=== PATIENT | female | born 1940 | race Caucasian/White ===

== ENCOUNTER 2024-06-21 07:36 | Day surgery (SDC) | payer MEDICARE, OTHER, SELFPAY ==
[2024-06-21] VITALS (24 sets, daily range): BP systolic 81–151; BP diastolic 46–79; PULSE 52–98; RESP 12–18; TEMP 35.4–36.9; O2SAT 89–100; BMI 28.3
--- OUTSIDE RECORDS SUMMARY | 2024-06-21 07:40 | XMS_ITS | Clinical Summary ---
Author Organization [facility] Address [address] [place] [id number] Care Team Providers Care Development Editor Name Role Phone Monse Hopkins MD Primary Care Provider [phone] Allergies Active Allergy Reactions Criticality Noted Date Comments Sulfamethoxazole-Trimethoprim Nausea And Vomiting 11/18/2018 Medications ascorbic acid, vitamin C, (VITAMIN C) 500 mg tablet Take 1 tablet by mouth once daily. 0 3 Active calcium carbonate-david min D3, 600 mg-400 unit, 600 mg-10 mcg (400 unit) tablet Take 1 tablet by mouth 2 times daily with meals. 0 3 Active multivitamins- iron tablet Take 0.5 tablets by mouth once daily. 0 4 Active lysine 500 mg tab Take 1 tablet by mouth 2 times daily with meals. To prevent cold sores. 0 6 Active fluticasone (50 mcg per actuation) nasal solution (FLONASE)Indic ations:Recurre nt sinus infections Inhale 1 [place] into both nostrils once daily. 1 Bottle 3 8 Active aspirin chewable 81 mg chewable tablet Chew 81 mg by mouth once daily with a meal. Active carBAMazepine (CARBATROL) 100 mg Extended-Relea se capsuleIndicat ions:Trigemina l neuralgia Take 4 Capsules (400 mg) by mouth two times daily. 240 Capsule 11 4 Active Additional Information Patient taking differently: 200 mgOral BID, Reported on 06/07/2024 simvastatin (ZOCOR) 20 mg tabletIndicati ons:Hyperlipid emia with target LDL less than 100 TAKE 1 TABLET BY MOUTH AT BEDTIME 90 Tablet 1 4 Active atenoloL (TENORMIN) 50 mg tabletIndicati ons:Hypertensi on, isolated systolic Take 1 tablet by mouth once daily 90 Tablet 4 Active vit C-E-zinc oc-iply-anh-ze ax (ICaps AREDS2) 250 mg-200 unit -12.5 mg-1 mg cap Take 1 Capsule by mouth once daily. 4 Active cycloSPORINE (RESTASIS) 0.05 % ophthalmic emulsion Place 1 Drop into both eyes two times daily. 4 Active omeprazole (PRILOSEC) 40 mg Delayed-Releas e capsuleIndicat ions:Epigastri c pain TAKE 1 CAPSULE BY MOUTH ONCE DAILY BEFORE A MEAL 90 Capsule 5 Active baclofen (LIORESAL) 10 mg tabletIndicati ons:Trigeminal neuralgia Take 0.5-1 Tablets (5-10 mg) by mouth 3 times daily if needed (pain). 4 06/07/19 25 Discontin ued(*Breonna ent states no longer taking) medication order composerIndica tions:Trigemin al neuralgia Lidocaine 2.4% nasal spray; 1 spray every 6 hours as needed to left nostril. Wait for patient to call 15 mL 4 06/07/19 25 Discontin ued(*Breonna ent states no longer taking) methylPREDNISo lone (Medrol, Arnold,) 4 mg tabletIndicati ons:Acute right-sided low back pain without sciatica Take by mouth as instructed per packaging. 21 Tablet 5 06/07/19 25 Discontin ued(*Med complete/ Regimen complete/ Level of care change) Active Problems Problem Noted Date Diagnosed Date Trigeminal neuralgia 10/12/2023 Choledocholithiasis 06/19/2021 Hepatitis 06/19/2021 Leukocytosis 06/19/2021 Impaired fasting glucose 02/22/2020 Arthritis of left glenohumeral joint 06/30/2019 BMI 31.0-31.9,adult 02/12/2018 Recurrent UTI (urinary tract infection) 12/13/19 18 Colon polyps 02/24/2013 Hypertension, isolated systolic 07/25/2011 CKD (chronic kidney disease) stage 3, GFR 30-59 ml/min 06/27/2011 Hyperlipidemia LDL goal < 100 12/06/2008 Pain in joint, pelvic region and thigh 7 GERD (gastroesophageal reflux disease) Epigastric pain Resolved Problems Problem Noted Date Diagnosed Date Resolved Date Chronic left shoulder pain 06/30/2019 0 08/22/2020 Ovarian cyst 04/26/2014 08/22/2020 Colonoscopy refused 03/09/2014 08/23/19 Routine general medical exam ination at a health care facility 02/22/2007 06/27/2011 HTN (hypertension) 2 Overview (07/03/2009): Updated by system to replace inactive record Encounters Date Type Department Care Team Description 06/14/[address] [phone] Yolanda Small DO Results 06/10/2024 Orders Only [address] [address] Yolanda Small DO 1 scan: (1-Ord) 06/07/2024 06/07/2024 11:00 AM [employer]BER [employer] Office Visit [address] [address] Yolanda Small DO Pre-Op Exam 06/07/2024 Travel 05/06/2024 2:45 PM [employer] Ancillary Procedure [address] [phone] 05/06/2024 1:00 PM [employer]BER SEC[employer] Office Visit [facility] [address] [place] [phone] Pearl Arellano NP Back Pain (Patient presents to ambulatory urgent care today with C/O having lower right sided back pain. She slipped on the ice 2 weeks ago. Continues to have pain. She has been icing and applying heart and ibuprofen. ) 05/06/2024 Travel 05/06/2024 Nurse Triage [address] [address] Monse Hopkins MD Back Injury 05/05/[address] [place] [address] Monse Hopkins MD Refill Request (Omeprazole) 05/04/2024 11:40 AM [employer]BER SEC[employer]ITY Office Visit [facility] [address] [place] [address] Dustin Ahuja MD Follow Up (Follow up trigeminal neuralgia ) 05/04/2024 Travel 04/19/2024 1:00 PM [employer]BER [employer] Nurse/Clinic Staff Only [address] [place] [address] Blood Pressure 04/19/2024 Travel 03/24/[address] [place] [address] Monse Hopkins MD Refill Request (Atenolol) from Last 3 Months Immunizations Name Administration Dates Next Due AMB Influenza, IIV3 (Age >=3 years)(Flu Clinic Only) 02/16/2013,02/18/2011 Amb Influenza, Inact (High-d ose) (Flu Clinic Only) 02/02/2014 COVID-19 vaccine (Pfizer-Bio NTech 30mcg/0.3mL) 12YO+ BIVALENT PF, MDV 02/06/2022 COVID-19 vaccine (Pfizer-Bio NTech 30mcg/0.3mL) 12YO+ JUAN ANTONIO-SUCROSE PF, MDV 09/04/2021 COVID-19 vaccine (Pfizer-Bio NTech 30mcg/0.3mL) PF, MDV 01/25/2021,07/14/2020,06/23/2020 Influenza Virus, Unspecified 02/19/2012 Influenza, High-dose Inactivated 024,02/09/2020,02/13/2016,02/02 Influenza, High-dose Quadriv alent Inactivated 01/30/2023,01/26/2020 Influenza, IIV3 (Age 6-35 mos) 02/18/2011 Influenza, IIV3 (Age >=3 years) 02/17/20 13,02/02/2012,02/20/2010,01/17,03/06/2008,02/22/2007,04/01/2005 ,02/10/2003 Influenza, IIV4 02/19/2015 Influenza, Inactivated AIIV4 (Age 65+ Years) Preserv Free 02/06/2022,01/25/2021 Influenza, Inactivated IIV3 (Age 65+ Years) Preserv Free 02/21/2019,02/12/2018,02/11/2017 Pneumococcal Poly,23-Valent (Pneumovax) 01/18/2011,03/06/2008 Pneumococcal conj 13-Valent (Prevnar 13) 02/13/2016 RSV, Bivalent Vaccine Recons tituted (Abrysvo 120MCG/0.5mL) 04/28/2023 Td (Age >=7 Years) 02/10/2003,02/26/1996 Td, Preservative Free (age >= 7 Years) 9 Tdap 03/06/2008 Zoster (Zostavax-ZVL, live) 04/04/2009 Family History Medical History Relation Name Comments Diabetes Brother Stroke Father at age 40 Heart Disease Mother Stroke Mother Diabetes Sister 1 Heart Disease Sister 2 Thyroid Disease Sister 3 Cancer-breast No Family History Relation Name Status Comments Brother Daughter 1 Alive Daughter 2 Alive Father Mother Sister 1 Sister 2 Sister 3 Son 1 Alive Son 2 Alive Son 3 Social History Tobacco Use Types Packs/Day Years Used Date Smoking Tobacco: Former Cigarettes 0.5 14 1 961 - 04/20/1974 Smokeless Tobacco: Never Tobacco Cessation:Counseling Given: Yes Comments:weekend smoker Alcohol Use Standard Drinks/Week Comments Not Currently 0 (1 standard drink = 0.6 oz pur e alcohol) rarely PHQ-2 Answer Date Recorded PHQ-2 TOTAL SCORE 0 04/08/2023 Social Connections Answer Date Recorded Do you often feel lonely or isolated from those around you? 0 10/12/2023 Financial Resource Strain Answer Date R ecorded Difficulty of Paying Living Expenses 3 10/12/2023 Difficulty of Paying Living Expenses Not on file 10/12/2023 Food Insecurity Answer Date Recorded Do you worry your food will run out before you are able to buy more? 1 10/12/2023 Transportation Needs Answer Date Record ed Does lack of transportation keep you from medica l appointments? 1 10/12/2023 Does lack of transportation keep you from work, meetings or getting things that you need? 1 10/12/2023 Housing Stability Answer Date Recorded What is your housing situation today? 1 10/12/2023 Utilities Answer Date Recorded Do you have trouble paying f or utilities (for example, heat, electricity, water, phone)? 1 10/12/2023 Comments No Sex and Gender Information Value Date Recorded Sex Assigned at Not on file Legal Sex Female 5:23 AM [employer] Gender Identity Not on file Sexual Orientation Not on file Occupation Industry Job Start Date Job End Date working Not on file Not on file Not on file Obstetrics History Para Term AB IAB SAB Ectopic Multiple Livin g Live Births 6 5 5 1 1 4 Date Outcome GA Total Labor Labor/2nd/3rd Weight Sex Type Anes PTL Lizzeth A1 A5 Name Clin Term Term Term Term Term Ectopic Last Filed Vital Signs Vital Sign Reading Time Taken Comments Blood Pressure 122/72 06/07/2024 11:13 AM [employer] Pulse 62 06/07/2024 11:13 AM [employer] Temperature 36.8 C (98.3 F) 05/06/2024 2:05 PM [employer] Respiratory Rate 16 05/06/2024 2:05 PM [employer]BER [employer]ITY Oxygen Saturation 98% 05/06/2024 2:05 PM [employer] Inhaled Oxygen Concentration - - Weight 70.1 kg (154 lb 8 oz) 06/07/2024 11:13 AM [employer]BER [employer] Height 159 cm (5' 2.6) 06/07/2024 11:13 AM [employer] Body Mass Index 27.72 06/07/2024 11:13 AM [employer] Plan of Treatment Health Maintenance Due Date Last Done Comments Zoster (shingles) series for age 50+ (2 of 3) 05/30/2009 04/04/2009 Depression screening for age 12+ 04/08/2024 04/08/2023, 10/30/2021, 08/22/2020, Additional history exists Medicare Wellness for age 65+ 04/08/2024, 10/30/2021, 08/22/2020, Additional history exists BMI (ht and wt on same day) for age 18+ 06/07/2025 06/07/2024, 10/16/2023, 10/12/2023, Additional history exists Tetanus booster 08/20/2028 08/20/2018, 02/18, 02/10/2003, Additional history exists Tdap Completed 03/06/2008 DEXA/DXA scan for age 65+ Completed 04/04/2009, 07/2007 Pneumococcal series for age 50+ Completed 02/13/2016, 01/18/2011, 03/06/2008 RSV vaccine for adults or Completed 04/28/2023 COVID-19 vaccine series Completed 02/03/20, 01/30/2023, 02/06/2022, Additional history exists Influenza for age 65+ Completed 02/03/2024 , 01/30/2023, 02/06/2022, Additional history exists Procedures Procedure Name Priority Date/Time Associated Diagnosis Comments CBC W PLT NO DIFF Routine 06/07/2024 12: 35 PM [employer] Hypertension, isolated systolic BASIC METABOLIC PANEL Routine 06/07/2024 12:35 PM [employer] Hypertension, isolated systolic HEMOGLOBIN A1C Routine 06/07/2024 12:35 PM [employer] Abnormal glucose EKG 12 LEAD Routine 06/07/2024 12:00 AM [employer] Preop examination Hypertension, isolated systolic XR SPINE LUMBAR 3 VIEWS STAT 05/06/2024 3:14 PM [employer] Acute right-sided low back pain without sciatica Accidental fall, initial encounter XR DXA BONE DENSITY 2 SITES AXIAL Routine 03/23/2008 Osteoporosis Screening from Last 3 Months or Most Recently Relevant to Health Maintenance Results * HEMOGLOBIN A1C (06/07/2024 12:35 PM [employer]) HEMOGLOBIN A1C 5.5 <5.7 % of total Hgb [facility] Comment: For the purpose of screening for the presence of diabetes: <5.7% Consistent with the absence of diabetes 5.7-6.4% Consistent with increased risk for diabetes (prediabetes) > or =6.5% Consistent with diabetes This assay result is consistent with a decreased risk of diabetes. Currently, no consensus exists regarding use of hemoglobin A1c for diagnosis of diabetes in children. According to [place] Diabetes Association (ADA) guidelines, hemoglobin A1c <7.0% represents optimal control in non- diabetic patients. Different metrics may apply to specific patient populations. Standards of Medical Care in Diabetes(ADA). Blood BLOOD SPECIMEN / Unknown 06/07/2024 12:35 PM [employer] 06/07/2024 12:36 PM [employer] Narrative [facility] - 06/08/2024 4:25 AM [employer] FASTING:YES FASTING: YES Yolanda Small DO CHEMISTRY Final Result [facility] [address] [place] [address], [facility] [address] [place] [address] * CBC W PLT NO DIFF (06/07/2024 12:35 PM [employer]) Pathologist [facility] WHITE BLOOD CELL COUNT 5.9 3.8 - 10.8 Thousand/u L [facility] RED BLOOD CELL COUNT 4.67 3.80 - 5.10 Million/uL [facility] HEMOGLOBIN 14.4 11.7 - 15.5 g/dL [facility] HEMATOCRIT 42.7 35.0 - 45.0 % [facility] MCV 91.4 80.0 - 100.0 fL [facility] MCH 30.8 27.0 - 33.0 pg [facility] MCHC 33.7 32.0 - 36.0 g/dL [facility] Comment: For adults, a slight decrease in the calculated MCHC value (in the range of 30 to 32 g/dL) is most likely not clinically significant; however, it should be interpreted with caution in correlation with other red cell parameters and the patient's clinical condition. RDW 12.2 11.0 - 15.0 % [facility] PLATELET COUNT 227 140 - 400 Thousand/u L [facility] MPV 9.7 7.5 - 12.5 fL [facility] Blood BLOOD SPECIMEN / Unknown 06/07/2024 12:35 PM [employer] 06/07/2024 12:36 PM [employer]ITY Narrative [facility] - 06/08/2024 2:39 AM [employer] FASTING:YES FASTING: YES us Yolanda Small DO HEMATOLOGY Final Result Performing Organization Address City/[facility]/ZIP Co de Phone Number [facility] [address] [place] [address], [facility] [address] [place] [phone] * (ABNORMAL) BASIC METABOLIC PANEL (06/07/2024 12:35 PM [employer]) Pathologist [facility] GLUCOSE 98 65 - 99 mg/dL [facility] Comment: Fasting reference interval UREA NITROGEN (BUN) 27(H) 7 - 25 mg/dL [facility] CREATININE 0.77 0.60 - 0.95 mg/dL [facility] EGFR 76 > OR = 60 mL/min/1.7 3m2 [facility] BUN/CREATININE RATIO 35(H) 6 - 22 (calc) [facility] SODIUM 143 135 - 146 mmol/L [facility] POTASSIUM 4.0 3.5 - 5.3 mmol/L [facility] CHLORIDE 110 98 - 110 mmol/L [facility] CARBON DIOXIDE 27 20 - 32 mmol/L [facility] ELECTROLYTE BALANCE 6(L) 7 - 17 mmol/L (calc) [facility] CALCIUM 8.9 8.6 - 10.4 mg/dL [facility] Blood BLOOD SPECIMEN / Unknown 06/07/2024 12:35 PM [employer]BER [employer]ITY 06/07/2024 12:36 PM [employer]BER [employer]ITY Narrative [facility] - 06/08/2024 4:14 AM [employer] FASTING:YES FASTING: YES us Yolanda Small DO CHEMISTRY Final Result Performing Organization Address City/[facility]/ZIP Co de Phone Number [facility] [address] [place] [address], [facility] [address] [place] [address] * EKG 12 LEAD (06/07/2024 12:00 AM [employer]) Yolanda Small DO EKG ORD Final Result * XR SPINE LUMBAR 3 VIEWS (05/06/2024 3:14 PM [employer]) Anatomical Region Laterality Modality LUMBAR SPINE Computed Radiogr aphy 05/06/2024 3:31 PM [employer] Narrative 05/06/2024 3:31 PM [employer] For Patients: As a result of the Cures Act, medical imaging exams and procedure reports are released immediately into your electronic medical record. You may view this report before your referring provider. If you have questions, please contact your health care provider. INDICATION: Acute right-sided low back pain. TECHNIQUE: Lumbar spine 3 view. COMPARISON: None. FINDINGS/IMPRESSION: Lumbar vertebral body height is and alignment is maintained. No acute vertebral compression fracture or malalignment. Multilevel mild degenerative changes with reduction of intervertebral disc height at L1-2, L2-3 levels with multilevel facet arthropathy. Surgical clips in the right upper quadrant and partially imaged right total hip arthroplasty. Dictated by Donato Shoemaker MD @ 05/06/2024 3:31:34 PM (Electronically Signed) Procedure Note Donato Shoemaker MD - 05/06/2024 For Patients: As a result of the Cures Act, medical imagingexams and procedure reports are released immediately into your electronicmedical record. You may view this report before your referring provider.If you have questions, please contact your health care provider. INDICATION: Acute right-sided low back pain. TECHNIQUE: Lumbar spine 3 view. COMPARISON: None. FINDINGS/IMPRESSION: Lumbar vertebral body height is and alignment is maintained. No acutevertebral compression fracture or malalignment. Multilevel milddegenerative changes with reduction of intervertebral disc height at L1-2,L2-3 levels with multilevel facet arthropathy. Surgical clips in the right upper quadrant and partially imaged righttotal hip arthroplasty. Dictated by Donato Shoemaker MD @ 05/06/2024 3:31:34 PM (Electronically Signed) us Pearl Arellano NP GENERAL IMAGING Final Result * XR DEXA BONE DENSITY 2 SITES (03/23/2008) Anatomical Region Laterality Modality Spine, HIPS, HIPL, HIPR Bone Den sitometry us Monse Hopkins MD DEXA Final Result from Last 3 Months or Most Recently Relevant to Health Maintenance Insurance [employer] MEDICARE PART B HB ONLY [employer] PB ONLY MEDICARE PART B HB ONLY MEDICA PRIME SOLUTION HB MEDICARE PART A HB ONLY Advance Directives * Full Code (Latest Code Status on File) Date Activated Date Inactivated Comments 02/25/2022 9:41 AM 02/25/2022 2:13 PM Question Answer Comments Code Status Discussion: Discussed * Full Code Date Activated Date Inactivated Comments 07/24/2021 11:47 AM 07/24/2021 8:51 PM Question Answer Comments Code Status Discussion: Reviewed Preferences * Full Code Date Activated Date Inactivated Comments 06/19/2021 4:57 AM 06/22/2021 10:35 AM Question Answer Comments Code Status Discussion: Reviewed Preferences * Full Code Date Activated Date Inactivated Comments 04/27/2014 5:55 AM 04/27/2014 2:38 PM Care Teams Development Editor Relationship Specialty Start Date End Date Monse Hopkins MD [address] [place] [address] PCP - General 03/04/07
[2024-06-21] MEDS: CELECOXIB 200 MG CAPSULE PO (08:20)
[2024-06-21] MEDS: OXYCODONE (CR) 10 MG TAB.ER.12H PO (08:20)
[2024-06-21] MEDS: ACETAMINOPHEN 500 MG TABLET 1000 MG PO ×3 (08:20→23:27)
[2024-06-21] MEDS: LACTATED RINGERS 1000 ML 1,000 ML 100 ML IV ×2 (08:30→12:45)
[2024-06-21] MEDS: SODIUM CHLORIDE 0.9 % (FLUSH) 10 ML SYRINGE IVF (08:30)
[2024-06-21] MEDS: fentaNYL 100 MCG/2 ML inj IVP (09:39)
[2024-06-21] MEDS: MIDAZOLAM HCL 1 MG/ML inj IVP (09:39)
--- NOTE | 2024-06-21 09:41 | SUR.PREOP ---
TIME?OUT:?0938 PT/RN/MDA?VERIFICATION?OF?SURGICAL?SITE,?PROCEDURE,?AND?CONSENT OBTAINED?PRIOR?TO?INVASIVE?PROCEDURE.
[2024-06-21] MEDS: CEFAZOLIN 2 GM INJ IVP (10:05)
[2024-06-21] MEDS: TRANEXAMIC ACID 100 MG/ML INJ 1000 MG IV (10:10)
--- NOTE | 2024-06-21 10:50 | P.NB_ITS ---
Nerve Block Nerve Block Time Seen by Provider: 09:40 Date Seen: 06/21/24 Type of block requested by surgeon for post-operative analgesia: SHANIKA/LFCN Side: left Time out performed: Yes Verification of patient name: Yes Verification of date of : Yes Site marking: site marked Name of person performing procedure: Oswald Continuous monitoring Was continuous monitoring of O2 sat, B/P, registered nurse post partum, recorded every 15 minutes?: Yes Procedure Checklist: sterile prep, needles and gloves Ultrasound guided. Images saved: Yes Medications given in 5ml increments after negative aspiration: Ropivicaine %: 0.5 mL: 30 Needle gauge: 20 Precedex (mcg): 25 Patient tolerated procedure well: Yes Additional comments: Needle noted below psoas tendon needle noted adjacent to LFCN Block Charges Block Charge (with Pro Fee): Other Periph Nerve Block Use of Ultrasound Machine for Block: Yes- US Guidance/pain block
--- NOTE | 2024-06-21 10:50 | W.ANESCHARGE ---
Anesthesia Charges Start Date/Time Anesthesia Start Date: 06/21/24 Anesthesia Start Time: 09:47 Stop Date/Time Anesthesia Stop Date: 06/21/24 Anesthesia Stop Time: 12:04 Summary Extremes of Age - Over 70 or under 1: MDA Coding CPT Codes CPT Codes: ANESTH HIP ARTHROPLASTY - 75330 ([id number]) P2 - PATIENT W/MILD SYST DISEASE, QK - DENTAL TECHNOLOGY ADVISOR 2-4 CNCRNT ANES PROC, QX - BILINGUAL TEACHER SVC W/ MD MED DIRECTION Additional Codes: Summary - Extremes of Age - Over 70 or under 1: MDA ([id number])
--- NOTE | 2024-06-21 11:32 | PM.ORPRC ---
Procedure Note Date of procedure: 06/21/24 Procedure: PREOPERATIVE DIAGNOSIS: Left hip osteoarthritis POSTOPERATIVE DIAGNOSIS: Left hip osteoarthritis NAME OF OPERATION: Left total hip arthroplasty SURGEON: Robert Banuelos MD MANAGER PROTEIN: Claudia Milner PA-C, NAJMA Barbosa IMPLANTS: 1. [employer] [place] # 48 sector ingrowth cup 2. 32 x 48 +4 neutral polyethylene 3. [place] #3 standard collared cemented stem 4. 32 + 1 cobalt chrome femoral head ANESTHESIA: Spinal ESTIMATED BLOOD LOSS: 100 cc COMPLICATIONS: None SPECIMENS: None DRAINS: None PREOPERATIVE ANTIBIOTICS: Ancef 1 g INDICATIONS: The patient is a 83-year-old with a longstanding history of severe, unrelenting left hip pain secondary to end-stage left hip osteoarthritis. Despite appropriate nonoperative management, including activity modification, use of an assist device, anti-inflammatories, fxwv-jtw-wowfeph pain medication, physical therapy and injections, they continue to have pain and disability. Operative intervention was offered. The risks, benefits and expected outcomes were discussed in detail. These included but were not limited to: Infection, bleeding, injury to blood vessel or nerve, venous thromboembolism. All questions were answered to their satisfaction. Use of an workforce development assistant was necessary throughout the case for patient positioning and safety, soft tissue retraction and closure. PROCEDURE: The patient was placed supine on the [place] table. General anesthesia was administered. The workforce development assistant made sure the patient was properly positioned. The left hip was prepped and draped in the usual sterile fashion. The image intensifier was brought in for a perfect AP pelvis and a perfect double tear drop AP view of each hip which were used for intraoperative templating with our fluoroscopic guide. An oblique incision was made 3 cm distal and 3 cm lateral to the anterior superior iliac spine. The workforce development assistant retracted the soft tissues to protect them. Subcutaneous dissection was taken with electrocautery to the superficial fascia. The fascia was divided in line with the incision. Blunt dissection was carried medially to the tensor fascia carmen and sartorius interval. Deep dissection was carried with electrocautery. The circumflex vessels were cauterized and divided. The capsule was exposed and then divided in a T-fashion, tagged with #1 Ethibond sutures. Retractors were placed in the joint, held by the workforce development assistant. The corkscrew was placed in the femoral head. The neck cut was made in the subcapital region. We made a second neck cut more distal. The napkin ring of bone was removed. The femoral head was removed intact. Acetabular retractors were placed, held by the workforce development assistant. The labrum was sharply debrided. The capsule was released. The 43 mm reamer was used to the true medial wall. We then enlarged in 2 mm increments using the image intensifier for our reamer placement. We impacted the cup which had excellent purchase. We placed the polyethylene. Attention was then turned to the proximal femur. The limb was placed in 140 degrees of external rotation, maximum extension and adduction. A significant amount of time was spent releasing the capsule to allow us to deliver the femur into the wound and complete the femoral side safely. Retractors were held by the workforce development assistant throughout the femoral preparation. The box icer and canal finder were used. Broaches were used to a stable size. Given the patient's age and bone quality, a cemented stem was planned. The calcar reamer was used. Trial components were placed. The hip was reduced and was found to be stable with appropriate soft tissue tension. Length and offset had been nicely restored using the image intensifier and our fluoroscopic guide. Trial components were removed. The cement restrictor was placed. The canal was irrigated with pulse lavage, then thoroughly dried. The cement was placed retrograde, with the cement gun. It was hand pressurized. The stem was placed in the cement mantle. The cement was allowed to harden. We placed the femoral head. Again, the hip was reduced and was found to be stable with appropriate soft tissue tension. Length and offset had been nicely restored. The workforce development assistant did a three minute dilute Betadine solution soak. The workforce development assistant irrigated the wound with 3 liters of normal saline via pulse lavage. The workforce development assistant repaired the anterior capsule with a #1 Vicryl and our previously placed Ethibond sutures. The workforce development assistant closed the fascia over the tensor fascia carmen with a #1 PDO Stratafix, subcutaneous tissues with 2-0 Vicryl, skin with a running 3-0 Stratafix and glue. A dry dressing was applied by the workforce development assistant. Sponge and needle counts were correct x 2. The patient tolerated the procedure well; there were no apparent complications. They were awakened and extubated in the operating room, sent to the Post-Anesthesia Care Unit in satisfactory condition. PLAN: 1. The patient will be mobilized with physical therapy, weight-bearing as tolerates 2. Xarelto x 5 days then aspirin x 30 days will be used for DVT prophylaxis 3. The patient will be discharged once medically appropriate
--- NOTE | 2024-06-21 12:09 | W.ANESCHARGE ---
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
[2024-06-21] MEDS: HYDROmorphone 0.5 mg/0.5 ml inj IVP (13:33)
[2024-06-21] MEDS: CEFAZOLIN 1 GM in 0.9 % SODIUM CHLORIDE Mini-bag 100 ML IVPB ×2 (15:49→23:35)
--- NOTE | 2024-06-21 15:53 | P.IMCN_ITS ---
Date of Consult Consult date: 06/21/24 Primary Care Provider: Monse Hopkins MD Consult Narrative Narrative: Deepa Taylor is a 83 year old female w/ PMH of HLD, IFG, CKD III and trigeminal neuralgia, who underwent Left total hip arthroplasty today. No hx of blood clots or bleeding. Pt is doing well s/p Sx. Pt noted to be bradycardic, EKG showed sinus bradycardia and prolonged QTc. Review of Systems Status of ROS: Reports: 6 or more systems reviewed and unremarkable except as noted in History and below [facility] Medical History (Updated 06/21/24 @ 22:51 by Anahy Hugo MD) Ovarian cyst ?N83.209 - Unspecified ovarian cyst, unspecified side (ICD-10) Hemorrhoids ?K64.9 - Unspecified hemorrhoids (ICD-10) Edentulous ?K08.109 - Complete loss of teeth, unspecified cause, unspecified class (ICD- 10) CAD (coronary artery disease) ?I25.10 - Atherosclerotic heart disease of [place] coronary artery without angina pectoris (ICD-10) Epigastric pain ?R10.13 - Epigastric pain (ICD-10) BMI 31.0-31.9,adult ?Z68.31 - Body mass index [BMI] 31.0-31.9, adult (ICD-10) Recurrent UTI (urinary tract infection) ?N39.0 - Urinary tract infection, site not specified (ICD-10) CKD (chronic kidney disease) stage 3, GFR 30-59 ml/min ?N18.30 - Chronic kidney disease, stage 3 unspecified (ICD-10) Trigeminal neuralgia ?G50.0 - Trigeminal neuralgia (ICD-10) Arthritis of left glenohumeral joint ?M19.012 - Primary osteoarthritis, left shoulder (ICD-10) Pain in joint, pelvic region and thigh ?M25.559 - Pain in unspecified hip (ICD-10) Leukocytosis ?D72.829 - Elevated white blood cell count, unspecified (ICD-10) Hepatitis ?K75.9 - Inflammatory liver disease, unspecified (ICD-10) Choledocholithiasis ?K80.50 - Calculus of bile duct without cholangitis or cholecystitis without obstruction (ICD-10) Colon polyps ?K63.5 - Polyp of colon (ICD-10) GERD (gastroesophageal reflux disease) ?K21.9 - Gastro-esophageal reflux disease without esophagitis (ICD-10) Impaired fasting glucose ?R73.01 - Impaired fasting glucose (ICD-10) Hyperlipidemia LDL goal <100 ?E78.5 - Hyperlipidemia, unspecified (ICD-10) Hypertension, isolated systolic ?I10 - Essential (primary) hypertension (ICD-10) Surgical History (Updated 06/21/24 @ 22:44 by Anahy Hugo MD) S/P right rotator cuff repair ?Z98.890 - Other specified postprocedural states (ICD-10) Hx of breast biopsy ?Z98.890 - Other specified postprocedural states (ICD-10) History of total hip arthroplasty ?Z96.649 - Presence of unspecified artificial hip joint (ICD-10) History of hysteroscopy ?Z98.890 - Other specified postprocedural states (ICD-10) Hx laparoscopic cholecystectomy ?Z90.49 - Acquired absence of other specified parts of digestive tract (ICD- 10) H/O esophagogastroduodenoscopy ?Z98.890 - Other specified postprocedural states (ICD-10) Social History (Updated 05/30/24 @ 15:11 by Samina Magaña ~ [facility], [facility]) Narrative: -Alexey former smoker What is your current living situation?: I presently have a place to live Problems where you live: no known problems In the past 12 months, utilities in danger of being shut off: no In past 12 months, lack of transportation kept you from medical appts, meetings, work, or getting things needed for daily living: no In the past 12 mos, have been you worried that your food would run out before you had money to buy more?: never true In the past 12 mos, the food you bought just didn't last and you didn't have money to buy more?: never true Highest level of school completed/degree received: GED or equivalent Smoking Status: Never smoker Do you use any of these nicotine containing products: None Second hand tobacco smoke exposure: No How often do you have a drink containing alcohol: never How often do you have six or more drinks on one occasion: Never AUDIT-C Alcohol total score: 0 Non-prescribed substance use: denies use Caffeine: No How often does anyone, including family, friends and others, physically hurt you : never How often does anyone, including family, friends and others, insult or talk down to you: never How often does anyone, including family, friends and others, threaten you with harm: never How often does anyone, including family, friends and others, scream or curse at you: never service: No Meds Home Medications and Allergies Home Medications ?Medication ?Instructions ?Recorded ?Confirmed ?Type atenolol 50 mg tablet 50 mg PO DAILY 05/30/24 06/21/24 History carbamazepine 100 mg 200 mg PO BID 05/30/24 06/21/24 History capsule,extended release [id number] cyclosporine 0.05 % eye drops in a 1 drp ophthalmic (eye) BID 05/30/24 06/21/24 History dropperette omeprazole 40 mg capsule,delayed 40 mg PO DAILY 05/30/24 06/21/24 History release simvastatin 20 mg tablet 20 mg PO QPM 05/30/24 06/21/24 History ascorbic acid (vitamin C) 500 mg 500 mg PO DAILY 06/20/24 06/21/24 History capsule aspirin 81 mg capsule 81 mg PO DAILY 06/20/24 06/21/24 History calcium 600 mg (as 1 tab PO DAILY 06/20/24 06/21/24 History carbonate)-vitamin D3 10 mcg (400 unit) tablet (Calcium 600 + D(3)) fluticasone propionate 50 1 spray intranasal DAILY PRN 06/20/24 06/21/24 History mcg/actuation nasal spray,suspension (24 Hour Allergy Relief) lysine 500 mg tablet 500 mg PO DAILY 06/20/24 06/21/24 History vit C 250 mg-vit E 200 unit-zinc 1 cap PO DAILY 06/21/24 06/21/24 History ox 12.5 ho-fmezwy-xyhmce-zeax capsule Allergies Allergy/AdvReac Type Severity Reaction Status Date / Time sulfamethoxazole (From Allergy Vomiting Verified 06/21/24 07:58 Bactrim) trimethoprim (From Bactrim) Allergy Vomiting Verified 06/21/24 07:58 Exam Narrative: Exam Narrative: Physical exam GENERAL: Comfortable, no acute distress. HEAD AND NECK: Atraumatic, normocephalic CARDIOVASCULAR: Bradycardia. Normal S1, S2. No murmurs. RESPIRATORY: Clear to auscultation B/L. Good air entry B/L. No wheezes or rhonchi. NEUROLOGY: Alert, awake, oriented X 3. Normal speech. PSYCH: Normal mood, normal affect. Const: Vital Signs, click to edit/add: Vital Signs - 24 hr 06/21/24 08:52 06/21/24 09:40 06/21/24 09:45 Temperature 98.5 F Pulse Rate 56 L 58 L 55 L Respiratory Rate 16 16 16 Blood Pressure 151/72 H 135/53 L 95/58 L Pulse Oximetry 98 100 98 Oxygen Delivery Me thod Room Air Nasal Cannula Nasal Cannula Oxygen Flow Rate 2 2 06/21/24 12:00 06/21/24 12:05 06/21/24 12:10 Temperature 97.8 F Pulse Rate 52 L 56 L 56 L Respiratory Rate 14 14 14 Blood Pressure 81/46 L 89/47 L 121/60 Pulse Oximetry 89 99 99 Oxygen Delivery Me thod OxyMask OxyMask OxyMask Oxygen Flow Rate 5 5 4 06/21/24 12:15 06/21/24 12:20 06/21/24 12:29 Temperature Pulse Rate 56 L 60 52 L Respiratory Rate 14 12 14 Blood Pressure 99/50 L 113/53 L 106/59 L Pulse Oximetry 94 92 92 Oxygen Delivery Me thod Room Air Room Air Room Air Oxygen Flow Rate 06/21/24 12:32 Temperature Pulse Rate 58 L Respiratory Rate 14 Blood Pressure 93/76 Pulse Oximetry 95 Oxygen Delivery Me thod Room Air Oxygen Flow Rate ECG Attestation: I personally reviewed and interpreted this ECG as follows: Interpretation: EKG today showed sinus bradycardia w/ 1st degree AV block and prolonged QTc at 616. Assessment and Plan Assessment and plan (1) Status post hip replacement: Problem comment: PT , weight-bearing as tolerates Xarelto x 5 days then aspirin x 30 days for DVT prophylaxis Status: Acute (2) Bradycardia: Problem comment: EKG today showed sinus bradycardia w/ 1st degree AV block and prolonged QTc at 616. D/w pt the need to f/up w/ PCP for eval Avoid QTc-prolonging meds Status: Acute (3) Trigeminal neuralgia: Problem comment: left side-had radiation 11/2023 Hold carbamezapine during Tx w/ xarelto Status: Acute (4) Prolonged Q-T interval on ECG: Problem comment: EKG today showed sinus bradycardia w/ 1st degree AV block and prolonged QTc at 616. D/w pt the need to f/up w/ PCP for eval Avoid QTc-prolonging meds Status: Acute (5) Osteoarthritis of left hip: Status: Acute (6) Impaired fasting glucose: Status: Acute (7) CKD (chronic kidney disease) stage 3, GFR 30-59 ml/min: Status: Acute Total Time Spent Total Time Spent: Time spent: Today I spent 75 minutes seeing the patient, discussing the patient with ER staff, reviewing [facility]panse and EPIC notes/diagnostics, discussing the care plan with our care time that includes social work, PT/OT, pharmacy, RT, sk illed nursing and documenting my impressions and plan in the medical record.
--- NOTE | 2024-06-21 19:39 | PC.NURSE ---
End of shift - Pt arrived from PACU at approximately 1235. Alert, oriented, cooperative and able to follow direction. Ice on surgical site and pedal pulse present. Dressing CDI. Pain reported as 4/10 in surgical hip, medication given per MAR to improve pt comfort and pt reported pain level as 1/10 on reassessment. Pt up with PT to chair with walker/gait belt. Tolerating RA, regular diet/fluids. Denied SOB, n/v and did not void during shift. Family at bedside, pt appears to be resting comfortably in chair with call light within reach.
[2024-06-22] MEDS: OXYCODONE 5 MG TABLET PO (03:09)
[2024-06-22 03:10] VITALS: BP 104/54; PULSE 60; RESP 16; TEMP 36.5; O2SAT 94
[2024-06-22] MEDS: 0.9 % SODIUM CHLORIDE 500 ML IV (04:52)
[2024-06-22] MEDS: ACETAMINOPHEN 500 MG TABLET 1000 MG PO ×2 (04:58→11:03)
[2024-06-22 06:33] LABS: Basophils Absolute Auto 0.02 K/uL (0.00-0.30); Basophils Percent Auto 0.3 % (0.0-3.0); Eosinophils Absolute Auto 0.11 K/uL (0.00-0.50); Eosinophils Percent Auto 1.7 % (0.0-7.0); Hematocrit 32.1 % (33.0-51.0); Hemoglobin* 10.8 gm/dL (12.0-16.0); Immature Granulocytes Abs Auto 0.01 K/uL (0.00-0.30); Immature Granulocytes Pct Auto 0.2 %; Lymphocytes Absolute Auto 1.95 K/uL (0.90-2.90); Lymphocytes Percent Auto 29.5 % (20-44); Mean Corpuscular HGB Conc 34 gm/dL (32-36); Mean Corpuscular Hemoglobin 31 pg (26-34); Mean Corpuscular Volume 92 fL (80-100); Monocytes Percent Auto 9.7 % (0.0-11.0); Neutrophils Absolute Auto 3.88 K/uL (1.7-7.0); Neutrophils Percent Auto 58.6 % (42.0-72.0); Platelet Count* 175 K/uL (140-440); RDW Coefficient of Variation % 11.8 % (11.5-15.5); Slide Review Reflex No; White Blood Count* 6.61 K/uL (4.50-11.00)
--- NOTE | 2024-06-22 06:47 | PC.NURSE ---
Pt alert and oriented x3. Afebrile. Pt reports 2-4/10 pain in left hip, pain managed with cold pack and PRN and scheduled medications. Pt?s left hip dressing is CDI. Pt is up SBA with walker and gait belt and tolerating a regular diet. Pt had minimal output overnight gave PRN 500 ml sodium chloride bolus per orders. Pt reports passing gas. ?
[2024-06-22 06:50] LABS: Sodium* 137 mmol/L (135-149)
[2024-06-22 06:51] LABS: Potassium* 3.4 mmol/L (3.6-5.1)
[2024-06-22 06:54] LABS: Blood Urea Nitrogen* 27 mg/dL (7-30); Creatinine* 0.8 mg/dL (0.5-1.5); Est. Creatinine Clearance* 33.71; Estimated Glomerular Filt Rate 73 ml/min
[2024-06-22 08:30] VITALS: BP 111/60; PULSE 61; RESP 16; TEMP 36.3; O2SAT 97
--- NOTE | 2024-06-22 09:06 | PM.ORPN ---
Subjective Subjective Time Seen by Provider: 09: Date Seen: 06/22/24 Principal diagnosis: Post left hip replacement Interval history: Deepa is doing well this morning. She got some sleep last night. She has completed the stairs and ambulated. She states this went well. It felt good to walk. Ortho Exam Narrative Exam Narrative: Alert and oriented x3. Patient is in no acute distress. Converses without labored breathing. Hearing is grossly intact. Ambulates with a walker. Examination of the left hip shows the dressing is intact. Mild ecchymosis. Mild soft tissue edema about the thigh. There is and area of numbness distal to the incision. Otherwise CMS intact left lower extremity. Bilateral calves are soft and nontender. No sign of infection. No erythema or warmth. Const Vital Signs, click to edit/add: Vital Signs - 24 hr 06/21/24 09:40 06/21/24 09:45 06/21/24 12:00 Temperature 97.8 F Pulse Rate 58 L 55 L 52 L Pulse Rate [Right Pulse Oximeter] Respiratory Rate 16 16 14 Blood Pressure 135/53 L 95/58 L 81/46 L Blood Pressure [Left Arm] Pulse Oximetry 100 98 89 Oxygen Delivery Method Nasal Cannula Nasal Cannula OxyMask Oxygen Flow Rate 2 2 5 06/21/24 12:05 06/21/24 12:10 06/21/24 12:15 Temperature Pulse Rate 56 L 56 L 56 L Pulse Rate [Right Pulse Oximeter] Respiratory Rate 14 14 14 Blood Pressure 89/47 L 121/60 99/50 L Blood Pressure [Left Arm] Pulse Oximetry 99 99 94 Oxygen Delivery Method OxyMask OxyMask Room Air Oxygen Flow Rate 5 4 06/21/24 12:20 06/21/24 12:29 06/21/24 12:32 Temperature Pulse Rate 60 52 L 58 L Pulse Rate [Right Pulse Oximeter] Respiratory Rate 12 14 14 Blood Pressure 113/53 L 106/59 L 93/76 Blood Pressure [Left Arm] Pulse Oximetry 92 92 95 Oxygen Delivery Method Room Air Room Air Room Air Oxygen Flow Rate 06/21/24 12:35 06/21/24 12:50 06/21/24 13:05 Temperature 95.7 F L Pulse Rate 53 L Pulse Rate [Right Pulse Oximeter] Respiratory Rate 16 Blood Pressure 128/63 128/63 123/72 Blood Pressure [Left Arm] Pulse Oximetry 93 Oxygen Delivery Method Room Air Oxygen Flow Rate 06/21/24 13:20 06/21/24 13:35 06/21/24 14:05 Temperature 95.7 F L 95.8 F L Pulse Rate 59 L 58 L Pulse Rate [Right Pulse Oximeter] Respiratory Rate 18 18 Blood Pressure 130/61 129/72 127/79 Blood Pressure [Left Arm] Pulse Oximetry 99 97 Oxygen Delivery Method Oxygen Flow Rate 06/21/24 14:35 06/21/24 15:35 06/21/24 16:35 Temperature 96.5 F L 96.0 F L Pulse Rate 98 63 Pulse Rate [Right Pulse Oximeter] Respiratory Rate 18 18 Blood Pressure 136/66 112/65 108/50 L Blood Pressure [Left Arm] Pulse Oximetry 98 92 Oxygen Delivery Method Oxygen Flow Rate 06/21/24 16:46 06/21/24 17:35 06/21/24 18:35 Temperature 97.0 F L Pulse Rate 65 64 Pulse Rate [Right Pulse Oximeter] Respiratory Rate 18 18 18 Blood Pressure 109/54 L 126/59 L Blood Pressure [Left Arm] Pulse Oximetry 98 93 94 Oxygen Delivery Method Room Air Oxygen Flow Rate 06/21/24 19:00 06/21/24 23:29 06/21/24 23:29 Temperature 96.9 F L 97.8 F Pulse Rate Pulse Rate [Right Pulse Oximeter] 68 61 Respiratory Rate 18 18 18 Blood Pressure Blood Pressure [Left Arm] 131/68 117/51 L Pulse Oximetry 96 95 95 Oxygen Delivery Method Room Air Room Air Room Air Oxygen Flow Rate 06/22/24 03:10 06/22/24 08:30 06/22/24 08:30 Temperature 97.7 F Pulse Rate Pulse Rate [Right Pulse Oximeter] 60 61 Respiratory Rate 16 16 Blood Pressure Blood Pressure [Left Arm] 104/54 L Pulse Oximetry 94 97 Oxygen Delivery Method Room Air Room Air Oxygen Flow Rate 06/22/24 08:30 Temperature 97.3 F L Pulse Rate Pulse Rate [Right Pulse Oximeter] 61 Respiratory Rate 16 Blood Pressure Blood Pressure [Left Arm] 111/60 Pulse Oximetry 97 Oxygen Delivery Method Room Air Oxygen Flow Rate Assessment and Plan Assessment and plan (1) Status post left hip replacement: Problem details: 06/21/2024 Status: Acute Assessment and Plan: Plan for discharge is today, and when they meets discharge criteria. DVT prophylaxis upon discharge includes Xarelto 10mg daily for a total of 5 days, then Aspirin 81mg twice daily for 30 days. She will stop her Carbamazepine while taking Oxy. This is discussed with her Pharmacist. He agrees. Remove dressing 1 week. Observe wound and phone Orthopedics with any questions or concerns Use Ice on operative hip unrestricted. Return to clinic in 7-10 days for a wound check Return to clinic in 6 weeks with surgeon Minimize narcotic use. Wean off and discontinue soon as possible. Activities as tolerated. No strenuous activity. Attend outpt PT
[2024-06-22] MEDS: OMEPRAZOLE 20 MG CAPSULE DR 40 MG PO (09:17)
[2024-06-22] MEDS: RIVAROXABAN 10 MG TABLET PO (09:17)
[2024-06-22] MEDS: atenoloL 50 MG TABLET PO (09:17)
[2024-06-22] MEDS: SENNOSIDES 1 TAB TABLET 2 TAB PO (09:18)
--- NOTE | 2024-06-22 09:43 | P.ORPN_ITS ---
<Statement entered by Claudia Todd PA-C - 12/16/24 13:48> Duplicate Subjective Subjective Date Seen: 06/22/24 Principal diagnosis: Post left hip replacement Ortho Exam Const Vital Signs, click to edit/add: Vital Signs - 24 hr 06/21/24 09:45 06/21/24 12:00 06/21/24 12:05 Temperature 97.8 F Pulse Rate 55 L 52 L 56 L Pulse Rate [Right Pulse Oximeter] Respiratory Rate 16 14 14 Blood Pressure 95/58 L 81/46 L 89/47 L Blood Pressure [Left Arm] Pulse Oximetry 98 89 99 Oxygen Delivery Method Nasal Cannula OxyMask OxyMask Oxygen Flow Rate 2 5 5 06/21/24 12:10 06/21/24 12:15 06/21/24 12:20 Temperature Pulse Rate 56 L 56 L 60 Pulse Rate [Right Pulse Oximeter] Respiratory Rate 14 14 12 Blood Pressure 121/60 99/50 L 113/53 L Blood Pressure [Left Arm] Pulse Oximetry 99 94 92 Oxygen Delivery Method OxyMask Room Air Room Air Oxygen Flow Rate 4 06/21/24 12:29 06/21/24 12:32 06/21/24 12:35 Temperature 95.7 F L Pulse Rate 52 L 58 L 53 L Pulse Rate [Right Pulse Oximeter] Respiratory Rate 14 14 16 Blood Pressure 106/59 L 93/76 128/63 Blood Pressure [Left Arm] Pulse Oximetry 92 95 93 Oxygen Delivery Method Room Air Room Air Room Air Oxygen Flow Rate 06/21/24 12:50 06/21/24 13:05 06/21/24 13:20 Temperature Pulse Rate Pulse Rate [Right Pulse Oximeter] Respiratory Rate Blood Pressure 128/63 123/72 130/61 Blood Pressure [Left Arm] Pulse Oximetry Oxygen Delivery Method Oxygen Flow Rate 06/21/24 13:35 06/21/24 14:05 06/21/24 14:35 Temperature 95.7 F L 95.8 F L Pulse Rate 59 L 58 L Pulse Rate [Right Pulse Oximeter] Respiratory Rate 18 18 Blood Pressure 129/72 127/79 136/66 Blood Pressure [Left Arm] Pulse Oximetry 99 97 Oxygen Delivery Method Oxygen Flow Rate 06/21/24 15:35 06/21/24 16:35 06/21/24 16:46 Temperature 96.5 F L 96.0 F L Pulse Rate 98 63 Pulse Rate [Right Pulse Oximeter] Respiratory Rate 18 18 18 Blood Pressure 112/65 108/50 L Blood Pressure [Left Arm] Pulse Oximetry 98 92 98 Oxygen Delivery Method Room Air Oxygen Flow Rate 06/21/24 17:35 06/21/24 18:35 06/21/24 19:00 Temperature 97.0 F L 96.9 F L Pulse Rate 65 64 Pulse Rate [Right Pulse Oximeter] 68 Respiratory Rate 18 18 18 Blood Pressure 109/54 L 126/59 L Blood Pressure [Left Arm] 131/68 Pulse Oximetry 93 94 96 Oxygen Delivery Method Room Air Oxygen Flow Rate 06/21/24 23:29 06/21/24 23:29 06/22/24 03:10 Temperature 97.8 F 97.7 F Pulse Rate Pulse Rate [Right Pulse Oximeter] 61 60 Respiratory Rate 18 18 16 Blood Pressure Blood Pressure [Left Arm] 117/51 L 104/54 L Pulse Oximetry 95 95 94 Oxygen Delivery Method Room Air Room Air Room Air Oxygen Flow Rate 06/22/24 08:30 06/22/24 08:30 06/22/24 08:30 Temperature 97.3 F L Pulse Rate Pulse Rate [Right Pulse Oximeter] 61 61 Respiratory Rate 16 16 Blood Pressure Blood Pressure [Left Arm] 111/60 Pulse Oximetry 97 97 Oxygen Delivery Method Room Air Room Air Oxygen Flow Rate
--- NOTE | 2024-06-22 12:41 | PC.NURSE ---
Discharge: Patient alert and orientated, VSS and tolerating a regular diet. RA. Dressing to left hip C/D/I. Active ice to op site. Patient reports passing gas. Patient discharge to home today, accompanied by son at 1120. IV removed, tip intact. Discharge paperwork signed and patient verbalized understanding. Belonging sheet signed.
== END 2024-06-22 11:20 | disposition home or self-care (01) ==
LOC: OR 07:38 → MEDSURG 07:39
PROVIDERS: PCP Family Medicine; Visit Provider Orthopaedic Surgery
PROC: (CPT 27130; principal; 2024-06-21 09:30)
DX: M16.12 Unilateral primary osteoarthritis, left hip (principal); G89.18 Other acute postprocedural pain; I25.10 Atherosclerotic heart disease of native coronary artery without angina pectoris; K21.9 Gastro-esophageal reflux disease without esophagitis; I12.9 Hypertensive chronic kidney disease with stage 1 through stage 4 chronic kidney disease, or unspecified chronic kidney disease; N18.30 Chronic kidney disease, stage 3 unspecified; E78.5 Hyperlipidemia, unspecified; G50.0 Trigeminal neuralgia; R73.01 Impaired fasting glucose; R94.31 Abnormal electrocardiogram [ECG] [EKG]; I44.0 Atrioventricular block, first degree; R00.1 Bradycardia, unspecified; Z79.01 Long term (current) use of anticoagulants; Z79.82 Long term (current) use of aspirin
CPT/HCPCS: 27130; 01214; 36415; 64450; 73501; 76000; 76942; 82565; 84132; 84295; 84520; 85025; 86850; 86900; 86901; 93005; 97116; 97162; 97165; 97530; 97535; 99100; A9270; C1776; J0690; J1100; J1171; J2250; J2371; J2405; J2704; J2795; J3010; J7030; J7120

== ENCOUNTER 2024-07-27 13:45 | Outpatient (RCR) | payer MEDICARE, OTHER, SELFPAY ==
--- NOTE | 2024-06-15 10:24 | PT.OPEX ---
PT [facility] PT [facility] Outpatient Eval Start: 06/15/24 07:50 Freq: Status: Active Protocol: Document 06/15/24 07:54 ENM (Rec: 06/15/24 10:07 ENM [id number]) E-signed By Marion Diaz DPT Physical Therapy Outpatient Evaluation Insurance Information Recert Due Date 09/13/24 Insurance Name Medicare B Medical Diagnosis unilateral primary osteoarthritis, left hip presence of left artificial hip joint DOS 06/21/24 Treating Diagnosis left hip pain, decreased hip ROM, muscle weakness, impaired gait Referring MD Banuelos Subjective Subjective Patient presents to PT for pre -operative evaluation prior to L ANIKA to be performed on . Had her right hip replaced at [place] in 2012. Had a good recovery after that replacement. The left hip started to her bother significantly in the last year . Uses a cane for stability and due to the pain. will be taking care of her after, he has also had hip replacements. For additional home set up information see pre-op flowsheet. PMHx: R hip replacement 2013, right rotator cuff repair, left face pain with history of radiation to the face Pain Comments varies from 3-01/27 Current Work Status Retired Objective Other/Pertinent Objective L knee WFL R knee WFL hip flexion L 108 R 90 degs Patient unable to lay in supine with hip extended without a pillow due to pain strength: needing to assist LLE for supine<>sit slow to perform seated LAQ on left compared to right gait/balance: Patient ambulates with decreased left knee and hip extension, decreased stance time of LLE, flexed posture, antalgic gait palpation/joint mobility: + for tenderness to palpation along left proximal hip flexors Assessment Assessment/Impression Patient is an 83 year old female presenting for pre op visit prior to L ANIKA on DOS 06/21/24. Patient has difficulty with functional mobility and ability to comfortably lay at night due to hip pains. They will have support from their spouse at home after the surgery. Patients goal is to be able to walk without pain after the surgery. Upon assessment patient displays decreased hip ROM, decreased proximal hip strength, hip flexor tightness and antalgic gait pattern. Patient will be seen post operatively to reassess impairments that will be addressed with skilled care. Deepa would greatly benefit from skilled PT in order to progress strength, ROM and ambulation post operatively for return to PLOF. Primary Functional Limitations walking, being on their feet, laying at night Plan of Care Rehabilitation Potential Good Physical Therapy Goals After pre-op visit: ? Patient will be independent with HEP ? Patient will verbalize knowledge of stair navigation and proper sequencing ? Patient will have knowledge on home adaptations and use of assistive devices post operatively ? Patient will have knowledge of edema management Coordination/Communication With Referral Source Treatment Plan/Direct Interventions Electrical Stimulation,Gait Training,Ice/Cold/ Vasopneumatic,Joint Mobilization,Manual Therapy, Neuromuscular Re-ed,Self-Care/ Home Management,Therapeutic Activities,Therapeutic Exercises Frequency/Duration 1x visit prior to surgery on . Patient scheduled to start outpatient PT s/p L ANIKA on 06/29/24. Patient Will Be Discharged From Therapy Completion of LTG(s), Independent w/HEP Evaluation Billing Untimed Code Treatment Minutes 18 Complexity Low Certification Information Initial Certification Date 06/15/24 Ending Certification Date 09/13/24 Provider Signature Required Yes Provider Signature Shows Agreement With POC & Medical Necessity Physician NPI Number Write NPI# Here Physician Comment/Change : Physician Signature & Date Requested Please Sign/Date Here
== END 2024-07-27 14:34 | disposition home or self-care (01) ==
PROVIDERS: PCP Family Medicine; Visit Provider Orthopaedic Surgery
DX: M16.12 Unilateral primary osteoarthritis, left hip (principal); Z96.642 Presence of left artificial hip joint; M25.552 Pain in left hip; Z74.09 Other reduced mobility; M62.81 Muscle weakness (generalized); R26.9 Unspecified abnormalities of gait and mobility; Z51.89 Encounter for other specified aftercare
CPT/HCPCS: 97110; 97116; 97140; 97161; 97164

== ENCOUNTER 2025-01-04 16:37 | Outpatient (CLI) | payer MEDICARE, OTHER, SELFPAY ==
--- NOTE | 2025-01-04 17:30 | MR_ITS ---
[facility] [address] [facility] [address] Phone:?[phone] Fax:?[phone] Referring Physician Information: Robert Banuelos M.D. [address] [facility] [address] Phone:?[phone] Fax:?[phone] Patient:Sushil Taylor D.O.B:?1940 Sex:?Female Phone:?[phone] [facility] MRN:?[id number] Exam Date:?01/04/2025 EXAM: MRI of the LEFT SHOULDER without contrast CLINICAL: Left shoulder pain. Evaluate for rotator cuff tear. COMPARISONS: X-rays 12/28/2024. TECHNICAL: Multiplanar multisequence MRI of the left shoulder was obtained. SEDATION: None. CONTRAST: None. FINDINGS: Rotator cuff: Supraspinatus/Infraspinatus: There is mild partial articular surface tearing of the posterior supraspinatus tendon at and proximal to the humeral attachment on coronal series 5 image 15-16 with moderate to advanced tendinosis of the anterior distal supraspinatus tendon. Infraspinatus tendon appears unremarkable. No significant fatty atrophy of the muscles. Teres minor: No tendinosis, tear or atrophy. Subscapularis: No tendinosis, tear or atrophy. Bursae: Subacromial-subdeltoid: Mild bursal fluid. Subcoracoid: No significant bursal fluid. Coracoacromial arch: Acromion morphology: Type I. No os acromiale. Acromiohumeral space: Within normal limits. Coracohumeral space: Within normal limits. Biceps tendon, long head: There is mild tendinosis of the intra-articular tendon and imaged proximal extra articular tendon. No significant tendon tear or displacement. Glenohumeral joint: Physiologic volume of joint fluid. Articular cartilage: There is full-thickness chondral loss involving the majority of the glenoid as well as involving the superomedial humeral head. Capsule: No evidence of capsular thickening or injury. Labrum: The posterior labrum is markedly attenuated throughout with attenuation of the superior labrum posterior to the biceps anchor. No perilabral cyst identified. Bones: Small osseous cystic changes are seen to involve the greater tuberosity of the proximal humerus with small degenerative subchondral cystic change involving the superior glenoid. No evidence of acute fracture or dislocation. Acromioclavicular joint: Mild changes of arthrosis. No AC joint injury/widening. IMPRESSION: 1. Mild partial tearing of the posterior supraspinatus tendon with moderate to advanced tendinosis of the anterior distal supraspinatus tendon. 2. Mild tendinosis of the long head biceps tendon. 3. 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 4. Mild AC joint arthrosis. JCZ Electronically signed on 01/05/2025 9:17:00 AM by Raghu Doe D.O.
== END 2025-01-04 16:38 | disposition home or self-care (01) ==
LOC: MRI 16:38
PROVIDERS: PCP Family Medicine; Visit Provider Orthopaedic Surgery
DX: M25.512 Pain in left shoulder (principal); S46.812A Strain of other muscles, fascia and tendons at shoulder and upper arm level, left arm, initial encounter; M19.012 Primary osteoarthritis, left shoulder
CPT/HCPCS: 73221